=== PATIENT | female | born 1995 | race Caucasian/White ===

== ENCOUNTER 2016-06-22 07:46 | Emergency (ER) | payer OTHER ==
[~2016-06-22] VITALS: Ht 165.1 cm; Wt 65.0 kg
[2016-06-22 07:59] VITALS: Ht 165.1 cm; Wt 65.0 kg
[2016-06-22 08:19] VITALS: O2SAT 100
[2016-06-22] MEDS ORDERED: SODIUM CHLORIDE 0.9% 1000ML 1,000 ML IV STA (08:26)
[2016-06-22] MEDS ORDERED: KETOROLAC TROMETHAMINE 30 MG/ML VIAL IV STA (08:26)
[2016-06-22 08:33] LABS: MEAN CELL VOLUME 87.6 fL (80-100); MEAN CORPUSCULAR HEMOGLOBIN 30.4 pg (25-34); MEAN CORPUSCULAR HGB CONC 34.7 g/dl (32-36); MEAN PLATELET VOLUME 9.6 fL (7.4-10.4); PLATELET COUNT 261 K/uL (130-400); RED BLOOD COUNT 4.34 M/uL (4.2-5.4); WHITE BLOOD COUNT 6.18 K/uL (4.8-10.8)
--- NOTE | 2016-06-22 08:44 | DIAGNOSTIC IMAGING REPORT ---
CHEST ONE VIEW PORTABLE HISTORY: Heart palpitations. COMPARISON: None. FINDINGS: The lungs are clear. Cardiac silhouette is normal in size. No pleural effusions. No pneumothorax. IMPRESSION: No acute process. Electronically signed by: Sung Farmer M.D. 06/22/2016 8:43 AM Dictated Date/Time: 06/22/2016 8:42 AM
[2016-06-22] MEDS ORDERED: BCPILLS PO (08:46)
[2016-06-22 08:52] LABS: BLOOD UREA NITROGEN 17 mg/dl (7-18); BUN/CREATININE RATIO 22.4 (10-20); CALCIUM 8.7 mg/dl (8.5-10.1); CARBON DIOXIDE 24 mmol/L (21-32); CHLORIDE 108 mmol/L (98-107); CREATININE 0.75 mg/dl (0.60-1.20); GLUCOSE 113 mg/dl (70-99); POTASSIUM 3.5 mmol/L (3.5-5.1); SODIUM 141 mmol/L (136-145)
[2016-06-22 08:57] LABS: CKMB/CK RATIO 1.3 (0-3.0)
[2016-06-22 09:08] LABS: BASO % 0.6 %; BASO ABS # 0.04 K/uL (0-0.2); COMPLETE YES; EOS % 0.6 %; IG% 0.2 %; LYMPH % 53.6 %; LYMPH ABS # 3.31 K/uL (1.2-3.4); MONO % 8.9 %; NEUT % 36.1 %
[2016-06-22 09:20] VITALS: TEMP 36.8
[2016-06-22 11:26] VITALS: BP 141/85; PULSE 90; O2SAT 99
--- NOTE | 2016-06-22 15:03 | EMERGENCY ROOM VISIT NOTE ---
History Report prepared by Eugenio: Harvey Shine Under the Supervision of: Dr. Karlo Jennings D.O. First contact with patient: 08:05 Chief Complaint: CARDIAC ASSESSMENT Stated Complaint: HEART PALIPITATIONS Nursing Triage Summary: PT C/O TIGHTNESS IN CHEST SINCE THURSDAY, SEEN AT PCP, WAS TOLD SHE HAD SOME MUCOUS AND A COUGH, SENT HOME. SYMPTOMS WERE IMPROVING AND THEN YESTERDAY PT DEVELOPED RACING HEART AND CP, WAS UNABLE TO SLEEP ALL EVENING. PT VERBALIZES CP 08/01, BUT "ITS MORE THE PALPITATIONS AND RACING HEART THAT BOTHERS ME". History of Present Illness The patient is a 21 year old female who presents to the Emergency Room with complaints of constant chest tightness and chest pain occurring around 0130 this morning. The patient states that she could not sleep last night due to her heart racing and having heart palpitations. The patient additionally states that she is having chest soreness in the center of her chest which started at the same time. She states that she was drinking alcohol last night, and she states that she had diet Pepsi as well. The patient states that she has some chest tightness earlier in the week, and she had a cough. The patient denies any recent traumas or falls. The patient states that she is currently taking control. She denies any long trips or recent surgeries. The patient denies any smoking or heart surgeries. She states that walking makes it feel a little bit better. The patient denies smoking or any history of heart diseases. The patient states that she has a family history of hypertension, cancer, and diabetes. Pt denies headache, change in vision, fevers, shortness of breath, nausea, vomiting, diarrhea, pain with urination, and melena. Source of History: patient Onset: 129 this morning Position: chest Quality: other (tightness) Timing: constant Modifying Factors (Relieving): other (walking) Associated Symptoms: + chest pain Review of Systems See HPI for pertinent positives & negatives. A total of 10 systems reviewed and were otherwise negative. Family History Diabetes mellitus FH: cancer Hypertension Social History Smoking Status: Never Smoker Alcohol Use: occasionally Marital Status: single Occupation Status: student Current/Historical Medications Scheduled Control Pills ( Control Pills), 1 TAB PO DAILY Allergies Coded Allergies: No Known Allergies (Unverified , 06/22/16) Physical Exam Vital Signs Date Time Temp Pulse Resp B/P Pulse Ox O2 Delivery O2 Flow Rate FiO2 06/22/16 11:26 90 18 141/85 99 Room Air 06/22/16 09:20 36.8 75 129/92 99 Room Air 06/22/16 08:25 100 06/22/16 08:20 80 19 149/116 100 06/22/16 08:19 100 Room Air 06/22/16 07:59 36.8 83 18 157/100 99 Room Air 06/22/16 07:59 99 Room Air Physical Exam GENERAL: sitting up in bed, anxious appearing, non-toxic EYE EXAM: normal conjunctiva OROPHARYNX: no exudate, no erythema, lips, buccal mucosa, and tongue normal and mucous membranes are moist NECK: supple, no nuchal rigidity, no adenopathy, non-tender LUNGS: Clear to auscultation. Normal chest wall mechanics HEART: no murmurs, S1 normal and S2 normal CHEST: Reproducible sternal tenderness. ABDOMEN: abdomen soft, non-tender, normo-active bowel sounds, no masses, no rebound or guarding. BACK: Back is symmetrical on inspection and there is no deformity, no midline tenderness, no CVA tenderness. SKIN: no rashes and no bruising UPPER EXTREMITIES: upper extremities are grossly normal. Radial pulses equal bilaterally. LOWER EXTREMITIES: No pitting edema. Calves equal bilaterally. NEURO EXAM: Normal sensorium, cranial nerves II-XII grossly intact, normal speech, no gross weakness of arms, no gross weakness of legs. Gross sensation intact. Medical Decision & Procedures ER Provider Diagnostic Interpretation: Xray results per the radiologist and my interpretation. CHEST ONE VIEW PORTABLE HISTORY: Heart palpitations. COMPARISON: None. FINDINGS: The lungs are clear. Cardiac silhouette is normal in size. No pleural effusions. No pneumothorax. IMPRESSION: No acute process. Electronically signed by: Sung Farmer M.D. 06/22/2016 8:43 AM Dictated Date/Time: 06/22/2016 8:42 AM Laboratory Results 06/22/16 08:25 Red Blood Count 4.34, Mean Corpuscular Volume 87.6, Mean Corpuscular Hemoglobin 30.4, Mean Corpuscular Hemoglobin Concent 34.7, Mean Platelet Volume 9.6, Neutrophils (%) (Auto) 36.1, Lymphocytes (%) (Auto) 53.6, Monocytes (%) (Auto) 8.9, Eosinophils (%) (Auto) 0.6, Basophils (%) (Auto) 0.6, Neutrophils # (Auto) 2.23, Lymphocytes # (Auto) 3.31, Monocytes # (Auto) 0.55, Eosinophils # (Auto) 0.04, Basophils # (Auto) 0.04 06/22/16 08:25 Test 06/22/16 08:25 06/22/16 10:46 White Blood Count 6.18 K/uL (4.8-10.8) Red Blood Count 4.34 M/uL (4.2-5.4) Hemoglobin 13.2 g/dL (12.0-16.0) Hematocrit 38.0 % (37-47) Mean Corpuscular Volume 87.6 fL (80-100) Mean Corpuscular Hemoglobin 30.4 pg (25-34) Mean Corpuscular Hemoglobin Concent 34.7 g/dl (32-36) Platelet Count 261 K/uL (130-400) Mean Platelet Volume 9.6 fL (7.4-10.4) Neutrophils (%) (Auto) 36.1 % Lymphocytes (%) (Auto) 53.6 % Monocytes (%) (Auto) 8.9 % Eosinophils (%) (Auto) 0.6 % Basophils (%) (Auto) 0.6 % Neutrophils # (Auto) 2.23 K/uL (1.4-6.5) Lymphocytes # (Auto) 3.31 K/uL (1.2-3.4) Monocytes # (Auto) 0.55 K/uL (0.11-0.59) Eosinophils # (Auto) 0.04 K/uL (0-0.5) Basophils # (Auto) 0.04 K/uL (0-0.2) RDW Standard Deviation 41.7 fL (36.4-46.3) RDW Coefficient of Variation 12.8 % (11.5-14.5) Immature Granulocyte % (Auto) 0.2 % Immature Granulocyte # (Auto) 0.01 K/uL (0.00-0.02) D-Dimer < 190 ug/L FEU (0-500) Anion Gap 9.0 mmol/L (3-11) Est Creatinine Clear Calc Drug Dose 106.8 ml/min Estimated GFR () 132.1 Estimated GFR (Non- 113.9 BUN/Creatinine Ratio 22.4 (10-20) Calcium Level 8.7 mg/dl (8.5-10.1) Total Creatine Kinase 119 U/L (26-192) Creatine Kinase MB 1.5 ng/ml (0.5-3.6) Creatine Kinase MB Ratio 1.3 (0-3.0) Troponin I < 0.015 ng/ml (0-0.045) Laboratory results per my review. Medications Administered Medications (Trade) Dose Ordered Sig/Janice Route Start Time Stop Time Status Last Admin Dose Admin Ketorolac Tromethamine 30 mg 30 mg NOW STAT IV 06/22/16 08:26 06/22/16 08:28 DC 06/22/16 08:36 30 MG Sodium Chloride (Nss 1000ml) 1,000 ml @ 999 mls/hr Q1H1M STAT IV 06/22/16 08:26 06/22/16 09:26 DC 06/22/16 08:38 999 MLS/HR ECG Indication: chest pain, palpitations Rate (beats per minute): 80 Rhythm: normal sinus Findings: no ectopy, other (Normal axis) ED Course ED COURSE: Vital signs were reviewed and showed normal vitals The patients medical record was reviewed The above diagnostic studies were performed and reviewed. ED treatments and interventions as stated above. 0805: The patient was evaluated in room A11. A complete history and physical examination was performed. 0826: Toradol Inj 30mg IV, Sodium Chloride 1000 ml @ 999 mls/hr IV 1058 I reevaluated the patient, and she was feeling better 1145: Upon reevaluation, the patient is feeling better.I discussed my findings with the patient and she understands and agrees with the treatment plan. Based on the patients age, coexisting illnesses, exam and lab findings the decision to treat as an outpatient was made. The patient remained stable while under my care. The patient appeared well at the time of discharge. Medical Decision Differential diagnoses includes but is not limited to acute coronary syndrome, myocardial infarction, pericarditis, pulmonary embolus, aortic dissection, pneumonia, pneumothorax, musculoskeletal, shingles, esophageal. Patient is a 21 year old female who presents the ER palpitations and heart racing which started around 1:30 this a.m. She notes that this started after a night of drinking. She does have some chest tightness. She notes this started has been intermittent since the congestion that she had 4 days ago associated with cough. She does take estrogen. On exam she is cleared midsternal reproducible tenderness. She was still complaining of the palpitations and monitor showed sinus arrhythmia. Her EKG was normal. Normal chest x-ray. Troponins were negative and the last was drawn 8 hours from the onset of her pain. D-dimer was negative. Patient was updated at bedside. She is a low risk and consequently d-dimer/PE was not pursued any further. Patient does not complaints was discharged with muscle skeletal chest pain and palpitations and a normal sinus rhythm. Discussed with Pt concerning signs and symptoms to watch out for. Pt was instructed to follow up with their PCP and discussed with the patient their option to return to the ED at anytime for persistent or worsening symptoms. The appropriate anticipatory guidance and out-patient management, including indications for return to the emergency department, were explained at length to the patient and understood. Impression Primary Impression: Palpitations Additional Impression: Precordial chest pain Scribe Attestation The scribe's documentation has been prepared under my direction and personally reviewed by me in its entirety. I confirm that the note above accurately reflects all work, treatment, procedures, and medical decision making performed by me. Departure Information Dispostion Home / Self-Care Referrals No Doctor, Assigned (PCP) Forms IMPORTANT VISIT INFORMATION Patient Instructions My [facility] Additional Instructions Please follow up with your primary care doctor or if you are a student [facility] with in the next 24 hours. Any worsening of your symptoms, please return to the ED immediately. This includes any worsening chest pain, passing out, shortness of breath, or any other concerning signs or symptoms from your standpoint. Problem Qualifiers
== END 2016-06-22 11:55 | disposition home or self-care (01) ==
LOC: C.EDB 07:50 → C.EDA 11:55
DX: R00.2 Palpitations (principal); R07.2 Precordial pain; R05 Cough; Z79.3 Long term (current) use of hormonal contraceptives; Z82.49 Family history of ischemic heart disease and other diseases of the circulatory system; Z83.3 Family history of diabetes mellitus